=== PATIENT | male | born 1950 | race Caucasian/White ===

== ENCOUNTER 2019-09-23 15:53 | Emergency (ER) | payer MEDICARE ==
[2019-09-23] MEDS: cefTRIAXone 2 GM Vial ONE (16:48)
[2019-09-23] MEDS: cefTRIAXone 1 GM Vial IM ONE (16:52)
--- NOTE | 2019-09-23 17:13 | EDM.PDOC ---
ED HPI GENERAL MEDICAL PROBLEM - General Chief Complaint: General Stated Complaint: boil Time Seen by Provider: 09/23/19 16:30 Source of Information: Reports: Patient History Limitations: Reports: No Limitations - History of Present Illness INITIAL COMMENTS - FREE TEXT/NARRATIVE: This is a 69yo M here for a boil of the right buttocks area. He states it has oozed a few times and has worsened over the past week. He has had prior boils and treated them himself. He states the most recent boil is in the buttocks and the others have only been in the groin areas. He denies fever but has some chills. Onset: Gradual Duration: Week(s): Location: Reports: Other (right buttocks) Severity: Severe Improves with: Reports: None Worsens with: Reports: Movement Left Lower Buttock Pain Score (Numeric/FACES): 4 - Related Data Allergies Allergy/AdvReac Type Severity Reaction Status Date / Time No Known Allergies Allergy Verified 09/23/19 16:48 Home Meds: Home Meds Clindamycin HCl 450 mg PO Q6HR #120 capsule 09/23/19 [Rx] ED ROS GENERAL - Review of Systems Review Of Systems: Comprehensive ROS is negative, except as noted in HPI. ED EXAM, GENERAL - Physical Exam Exam: See Below Exam Limited By: No Limitations General Appearance: Alert, WD/WN, Mild Distress, Moderate Distress Ears: Normal External Exam Nose: Normal Inspection Throat/Mouth: Normal Inspection Head: Atraumatic, Normocephalic Neck: Normal Inspection Respiratory/Chest: No Respiratory Distress, Lungs Clear, Normal Breath Sounds Cardiovascular: Normal Peripheral Pulses, Regular Rate, Rhythm GI/Abdominal: Normal Bowel Sounds Back Exam: Normal Inspection Skin Exam: Erythema, Increased Warmth, Other (oozing , red irritated and firm area of the right buttocks 15x8cm) Course - Vital Signs Last Recorded V/S: Last Vital Signs Temp 36.8 C 09/23/19 16:14 Pulse 101 H 09/23/19 16:14 Resp 20 09/23/19 16:14 BP 154/48 H 09/23/19 16:14 Pulse Ox 98 09/23/19 16:14 - Orders/Labs/Meds Orders: Active Orders 24 hr Category Date Time Status BASIC METABOLIC PANEL,BMP [CHEM] Stat Lab 09/23/19 16:30 Received CULTURE WOUND + SMEAR [RM] Stat Lab 09/23/19 16:30 Received Labs: Laboratory Tests 09/23/19 09/23/19 Range/Units 16:30 16:30 WBC 19.1 H D (4.0-11.0) K/uL RBC 4.04 L (4.50-6.50) M/uL Hgb 11.9 L (13.0-18.0) g/dL Hct 36.0 L (40.0-54.0) % MCV 89 (76-96) fL MCH 29.5 (27.0-32.0) pg MCHC 33.1 (31.0-35.0) g/dL RDW 14.3 (11.0-16.0) % Plt Count 131 L (150-400) K/uL MPV 8.4 (6.0-10.0) fL Neut % (Auto) 88.2 H (45.0-70.0) % Lymph % (Auto) 3.7 L (20.0-40.0) % [place] % (Auto) 7.9 (3.0-10.0) % Eos % (Auto) 0.1 L (1.0-5.0) % Baso % (Auto) 0.1 (0.0-0.5) % Neut # (Auto) 16.79 H (2.00-7.50) K/uL Lymph # (Auto) 0.71 L (1.50-4.00) K/uL [place] # (Auto) 1.51 H (0.20-0.80) K/uL Eos # (Auto) 0.02 L (0.04-0.40) K/uL Baso # (Auto) 0.02 (0.02-0.10) K/uL Lactic Acid 1.58 (0.90-1.70) mmol/L Meds: Medications Discontinued Medications Generic Name Dose Route Start Last Admin Trade Name Freq PRN Reason Stop Dose Admin Ceftriaxone Sodium Confirm 09/23/19 16:48 09/23/19 16:48 Rocephin Administered 09/23/19 16:49 Not Given Dose 2 gm .ROUTE .STK-MED ONE Ceftriaxone Sodium 2 gm 09/23/19 16:47 09/23/19 16:52 Rocephin IM 09/23/19 16:48 2 gm ONETIME ONE Administration Departure - Departure Time of Disposition: 17:00 Disposition: Home, Self-Care 01 Condition: Good Clinical Impression: Abscess - Discharge Information Instructions: Wound Care, Adult Referrals: PCP,None [Primary Care Provider] - Forms: ED Department Discharge Additional Instructions: Discharge home. Rocephin 2gm injection given in left buttock i9n ER. Clindamycin by mouth as directed. Return to the hospital on Thursday to have packing removed and wound re-packed. Call or return to the ER if you have any questions or concerns. Sepsis Event Note - Evaluation Sepsis Screening Result: No Definite Risk - Focused Exam Vital Signs: Vital Signs Temp Pulse Resp BP Pulse Ox 09/23/19 16:14 36.8 C 101 H 20 154/48 H 98 Date Exam was Performed: 09/23/19 Time Exam was Performed: 17:08 - Problem List Review Problem List Initiated/Reviewed/Updated: Yes - My Orders Last 24 Hours: My Active Orders 09/23/19 16:30 BASIC METABOLIC PANEL,BMP [CHEM] Stat CULTURE WOUND + SMEAR [RM] Stat - Assessment/Plan Last 24 Hours: My Active Orders 09/23/19 16:30 BASIC METABOLIC PANEL,BMP [CHEM] Stat CULTURE WOUND + SMEAR [RM] Stat Plan: Counseled on f/u packing on Thursday. Discussed rtc on for recheck. Counseled on antibiotics and management. F/u as directed and as needed.
== END 2019-09-23 17:00 | disposition home or self-care (01) ==
LOC: LB.ED 15:53
DX: L02.31 Cutaneous abscess of buttock (principal)
CPT/HCPCS: 36415; 80048; 83605; 85025; 87070; 87077; 87186; 87205; 96372; 99283; J0696

== ENCOUNTER 2019-09-25 09:00 | Emergency (ER) | payer MEDICARE | END 2019-09-25 09:52 | disposition left against medical advice (07) | LOC: LB.ED 09:00 | DX: Z53.21 Procedure and treatment not carried out due to patient leaving prior to being seen by health care provider (principal) ==

== ENCOUNTER 2019-10-01 15:37 | Emergency (ER) | payer MEDICARE ==
--- NOTE | 2019-10-01 16:59 | EDM.PDOC ---
ED HPI GENERAL MEDICAL PROBLEM - General Chief Complaint: General Stated Complaint: POSSIBLE ABCESS Time Seen by Provider: 10/01/19 15:40 - History of Present Illness INITIAL COMMENTS - FREE TEXT/NARRATIVE: Edil presents today for inspection of his right gluteal area. His completed his dressing change at noon and felt an area along the inner aspect of his buttocks which seemed somewhat more firm than what she remembered. Edil underwent surgical debridement last week and was switched from clindamycin to augmentin based on the result of multiple cultures. He has had no fever, malaise, or increased pain at all. - Related Data Allergies Allergy/AdvReac Type Severity Reaction Status Date / Time No Known Allergies Allergy Verified 09/23/19 16:48 Home Meds: Home Meds Clindamycin HCl 450 mg PO Q6HR #120 capsule 09/23/19 [Rx] Social & Family History - Family History Family Medical History: Noncontributory - Caffeine Use Caffeine Use: Reports: None ED ROS GENERAL - Review of Systems Review Of Systems: See Below Constitutional: Reports: No Symptoms ED EXAM, GENERAL - Physical Exam Exam: See Below Exam Limited By: No Limitations General Appearance: Alert, WD/WN, No Apparent Distress Rectal (Males) Exam: Other (careful inspection of his gluteal region reveals gauze packing in place without visible discharge, minimal erythema, and appears consistent with healing area of debridement. The area of concern was palpated and minimally indurated, without any obvious sign of infection. This is not warm or tender at all, and there is no fluctuance whatsoever. ) Departure - Departure Time of Disposition: 16:00 Disposition: Home, Self-Care 01 Clinical Impression: Abscess, gluteal, left - Discharge Information Instructions: Wound Care, Adult Referrals: PCP,None [Primary Care Provider] - Forms: ED Department Discharge Care Plan Goals: continue on the augmentin, continue with the dressing changes as ordered, follow up with primary provider as previously scheduled. call with any changes or concerns. - Assessment/Plan Plan: Explained to Edil and his to continue to monitor the area and come back in if increasing tenderness,warmth, erythema, or any systemic symptoms noted.
== END 2019-10-01 16:13 | disposition home or self-care (01) ==
LOC: LB.ED 15:37
DX: L02.31 Cutaneous abscess of buttock (principal)
CPT/HCPCS: 99282

== ENCOUNTER 2020-06-25 12:28 | Emergency (ER) | payer MEDICARE ==
[2020-06-25] MEDS ORDERED: cefTRIAXone 1 GM Vial IM ONE (14:00)
[2020-06-25] MEDS ORDERED: cefTRIAXone 1 GM Vial ONE (14:06)
--- NOTE | 2020-06-25 17:50 | EDM.PDOC ---
ED HPI GENERAL MEDICAL PROBLEM - General Chief Complaint: Skin Complaint Stated Complaint: CYST UNDER RIGHT BREAST/ ABSCESS Time Seen by Provider: 06/25/20 12:52 Source of Information: Reports: RN (pROBLEM HAS BEEN GOING ON FOR MANY YEARS PER PATIENT.) - History of Present Illness INITIAL COMMENTS - FREE TEXT/NARRATIVE: Mr. Vuong is a 70 YO Obese Diabetic male who presented to the ED for concerns of a red mass beneath his Rt breast. He states this area is frequently infected and he treats it with ABX and I and D performed in the clinic. He states the mass appears randomly on and off for years. He has not tried any home remedies. Skin is red and swollen with induration. He has no fever or pain. He is compliant with his home medications. Onset: Gradual Duration: Intermittent Location: Reports: Chest, Other (RT BREAST) Quality: Reports: Pressure Severity: Mild Improves with: Reports: None Worsens with: Reports: Movement Associated Symptoms: Reports: No Other Symptoms - Related Data Allergies Allergy/AdvReac Type Severity Reaction Status Date / Time No Known Allergies Allergy Verified 06/25/20 16:47 Home Meds: Home Meds Dapagliflozin/Metformin HCl [Xigduo Xr 5 mg-1,000 mg Tablet] 1 tab PO DAILY 06/25/20 [History] Dulaglutide [Trulicity] 1 dose SQ ASDIRECTED 06/25/20 [History] Furosemide [Lasix] 40 mg PO DAILY 06/25/20 [History] Insulin Glargine,Hum.Rec.Anlog [Toujeo Max Solostar] 1 dose SQ ASDIRECTED 06/25/20 [History] Insulin Lispro [Humalog] 1 dose SQ ASDIRECTED 06/25/20 [History] atorvaSTATin [Lipitor] 40 mg PO BEDTIME 06/25/20 [History] lisinopriL [Lisinopril] 10 mg PO DAILY 06/25/20 [History] Past Medical History Cardiovascular History: Reports: High Cholesterol, Hypertension Endocrine/Metabolic History: Reports: Diabetes, Type II Dermatologic History: Reports: Other (See Below) Other Dermatologic History: large boil to pernium - Past Surgical History Cardiovascular Surgical History: Reports: None Social & Family History - Family History Family Medical History: Noncontributory - Tobacco Use Tobacco Use Status *Q: Unknown Ever Used Tobacco Second Hand Smoke Exposure: No - Caffeine Use Caffeine Use: Reports: Coffee - Recreational Drug Use Recreational Drug Use: No ED ROS GENERAL - Review of Systems Review Of Systems: See Below Constitutional: Reports: No Symptoms HEENT: Reports: No Symptoms Respiratory: Reports: No Symptoms Cardiovascular: Reports: No Symptoms Endocrine: Reports: No Symptoms GI/Abdominal: Reports: No Symptoms Skin: Reports: No Symptoms Neurological: Reports: No Symptoms Psychiatric: Reports: No Symptoms ED EXAM, SKIN/RASH Exam: See Below Exam Limited By: No Limitations General Appearance: Alert, No Apparent Distress Eye Exam: Bilateral Eye: PERRL Nose: Normal Inspection Head: Atraumatic, Normocephalic Neck: Normal Inspection Respiratory/Chest: No Respiratory Distress, Normal Breath Sounds Cardiovascular: Normal Peripheral Pulses GI/Abdominal: Normal Bowel Sounds (EDEMA) Neurological: Alert, Oriented, CN II-XII Intact, Normal Cognition Psychiatric: Normal Affect Skin: Warm, Other (Rt fluctulant mass beneath Rt breast) Associated features: Swelling, Induration (erythema ) Lymphatic: No Adenopathy (Rt front beanth breast) ED SKIN PROCEDURES - I&D Skin Prep: Chlorhexidine (Hibiciens), Providone-Iodine (Betadine), Saline Local Anesthesia: Lidocaine: 1% with EPI Local Anesthetic Volume: 5cc Area Incised With: 11 Blade Drainage: Purulent, Bloody, Moderate Amount Probed to Break Up Loculations: Yes Packed With: None Sterile Dressing: Adhesive Dressing, 4x4(s) Complications: No Progress/Comments: Wound was cleaned and dressed with no bleeding post procedure. Course - Vital Signs Last Recorded V/S: Last Vital Signs Temp 36.1 C 06/25/20 12:40 Pulse 91 06/25/20 12:40 Resp 16 06/25/20 12:40 BP 151/70 H 06/25/20 12:40 Pulse Ox 96 06/25/20 12:40 - Orders/Labs/Meds Orders: Active Orders 24 hr Category Date Time Status CULTURE WOUND + SMEAR [RM] Stat Lab 06/25/20 13:00 Received Meds: Medications Discontinued Medications Generic Name Dose Route Start Last Admin Trade Name Freq PRN Reason Stop Dose Admin Ceftriaxone Sodium Confirm 06/25/20 14:06 06/25/20 17:48 Rocephin Administered 06/25/20 14:07 Not Given Dose 1 gm .ROUTE .STK-MED ONE Ceftriaxone Sodium 1 gm 06/25/20 14:00 06/25/20 14:05 Rocephin IM 06/25/20 14:01 1 gm ONETIME ONE Administration Departure - Departure Time of Disposition: 14:15 Disposition: Home, Self-Care 01 Condition: Good Clinical Impression: Abscess - Discharge Information *PRESCRIPTION DRUG MONITORING PROGRAM REVIEWED*: Not Applicable Instructions: Wound Infection, [id number] Referrals: Shukri Hayden MD [Primary Care Provider] - Forms: ED Department Discharge Additional Instructions: Keep affected area clean and dry. Come to hospital on Thursday, June 27 and for wound care. This can be done by hospital nursing. Call [phone] tomorrow to schedule time for Thursday wound care. Call [facility] at [phone] to schedule appointment to follow up with Dr. Hyaden for later this month. Fill provided prescription for ordered antibiotics and take as instructed. Call with any questions. Sepsis Event Note (ED) - Evaluation Sepsis Screening Result: No Definite Risk - Focused Exam Vital Signs: Vital Signs Temp Pulse Resp BP Pulse Ox 06/25/20 12:40 36.1 C 91 16 151/70 H 96 - My Orders Last 24 Hours: My Active Orders 06/25/20 13:00 CULTURE WOUND + SMEAR [RM] Stat - Assessment/Plan Last 24 Hours: My Active Orders 06/25/20 13:00 CULTURE WOUND + SMEAR [RM] Stat Assessment:: 1) 2.5cm Fluctuant Abscess Rt Chest with some mild skin infection Plan: 1) keep wound clean dry and dressed. 2)Finish all medications prescribed 3)FU in clinic for wound care Thursday and Thursday. 4) RTC or ED for new or worsening symptoms. 5) Consider General surgery or radiology consult for Biopsy pending cytology report.
== END 2020-06-25 14:15 | disposition home or self-care (01) ==
LOC: LB.ED 12:28
DX: L02.213 Cutaneous abscess of chest wall (principal); E66.9 Obesity, unspecified; E11.9 Type 2 diabetes mellitus without complications; E78.00 Pure hypercholesterolemia, unspecified; I10 Essential (primary) hypertension; Z79.4 Long term (current) use of insulin; Z79.899 Other long term (current) drug therapy
CPT/HCPCS: 10060; 87070; 87205; 96372; 99283-25; J0696

== ENCOUNTER 2024-07-04 11:25 | Emergency (ER) | payer MEDICARE, MEDICAID ==
[2024-07-04] MEDS: Bacitracin Oint 1 GM U/D Packet TOP ONE (12:11)
== END 2024-07-04 12:24 | disposition home or self-care (01) ==
LOC: LB.ED 11:25
DX: E11.628 Type 2 diabetes mellitus with other skin complications (principal); S90.822A Blister (nonthermal), left foot, initial encounter; I11.0 Hypertensive heart disease with heart failure; I50.20 Unspecified systolic (congestive) heart failure; E11.42 Type 2 diabetes mellitus with diabetic polyneuropathy; K21.9 Gastro-esophageal reflux disease without esophagitis; Z79.4 Long term (current) use of insulin; Z79.82 Long term (current) use of aspirin; Z79.899 Other long term (current) drug therapy; X58.XXXA Exposure to other specified factors, initial encounter
CPT/HCPCS: 99282

== ENCOUNTER 2025-07-14 14:23 | Emergency (ER) | payer MEDICARE, MEDICAID ==
[2025-07-14] MEDS ORDERED: Sodium Chloride 0.9% 10 ML Syringe FLUSH PRN (15:35)
== END 2025-07-14 16:25 | disposition home or self-care (01) ==
LOC: LB.ED 14:23
DX: L03.115 Cellulitis of right lower limb (principal); I10 Essential (primary) hypertension; E78.00 Pure hypercholesterolemia, unspecified; E11.9 Type 2 diabetes mellitus without complications; Z79.899 Other long term (current) drug therapy; Z79.4 Long term (current) use of insulin; Z79.51 Long term (current) use of inhaled steroids
CPT/HCPCS: 96374; 99283-25; J0696